=== PATIENT | female | born 1995 | race Two or more races ===

== ENCOUNTER 2020-04-20 05:11 | Day surgery (SDC) | payer OTHER ==
[2020-04-19 15:13] VITALS: BMI 23.6
[2020-04-20] MEDS ORDERED: BUPIVACAINE HCL 100 ML ONE (07:18)
[2020-04-20] MEDS ORDERED: MIDAZOLAM HCL 2 MG/2 ML SINGLE DOSE VIAL ONE ×2 (07:46)
[2020-04-20] MEDS ORDERED: PROPOFOL 20 ML ONE ×5 (07:46→11:26)
[2020-04-20] MEDS ORDERED: ROCURONIUM BROMIDE 50 MG/5 ML SYRINGE ONE ×2 (07:46→09:18)
[2020-04-20] MEDS ORDERED: fentaNYL CITRATE 250 MCG/5 ML VIAL ONE (07:46)
[2020-04-20] MEDS ORDERED: NEOSTIGMINE METHYLSULFATE 0.5 MG/ML - 10 ML MDV ONE (07:46)
[2020-04-20] MEDS ORDERED: GLYCOPYRROLATE 0.2 MG/1 ML VIAL ONE ×2 (07:46→09:17)
[2020-04-20] MEDS ORDERED: LIDOCAINE HCL 2% JELLY (5 ML/TUBE) ONE (07:46)
[2020-04-20] MEDS ORDERED: ceFAZolin SODIUM 1 GM VIAL IVPB ONE (08:20)
[2020-04-20] MEDS ORDERED: EPHEDRINE SULFATE/0.9% NACL/PF 50 MG/10 ML SYRINGE NR ONE (08:43)
[2020-04-20] MEDS ORDERED: BUPIVACAINE HCL/PF 0.5% (5MG/ML) 10 ML VIAL IJ ONE ×2 (08:44→09:50)
[2020-04-20] MEDS ORDERED: DEXAMETHASONE SOD PHOSPHATE 4 MG/1 ML VIAL ONE (09:23)
[2020-04-20] MEDS ORDERED: KETOROLAC TROMETHAMINE 30 MG/1 ML VIAL ONE (09:23)
[2020-04-20] MEDS ORDERED: LACTATED RINGERS SOLUTION 1,000 ML IV SCH (11:00)
[2020-04-20] MEDS ORDERED: oxyCODONE HCL 5 MG TABLET PO PRN ×2 (11:00)
[2020-04-20] MEDS ORDERED: ONDANSETRON 4 MG/2 ML VIAL IVPUSH PRN (11:00)
[2020-04-20] MEDS ORDERED: oxyCODONE HCL 5 MG TABLET ONE ×2 (12:47→13:13)
[2020-04-20 14:29] VITALS: TEMP 97.3
[2020-04-20 15:49] VITALS: BP 100/70; PULSE 70
== END 2020-04-20 15:30 | disposition home or self-care (01) ==
LOC: JASU-SURG 05:11
PROVIDERS: ATTEND Surgery
PROC: 0WQF4ZZ Repair Abdominal Wall, Percutaneous Endoscopic Approach (ICD-10-PCS; principal; 2020-04-20 08:00)
PROC: 0FT44ZZ Resection of Gallbladder, Percutaneous Endoscopic Approach (ICD-10-PCS; 2020-04-20 08:00)
DX: K81.1 Chronic cholecystitis (principal); K42.9 Umbilical hernia without obstruction or gangrene
CPT/HCPCS: 84703; 88304-TC; 94760

== ENCOUNTER 2020-05-21 20:04 | Emergency (ER) | payer OTHER ==
[2020-05-21 20:15] VITALS: BP 111/76; PULSE 94; TEMP 97.6; BMI 23.9
[2020-05-21 22:24] LABS: BASO % 0.4 % (0-2.0); EOS % 1.8 % (0-4.5); HEMATOCRIT 35.6 % (32.4-45.2); HEMOGLOBIN 12.3 GM/dL (10.7-15.3); LYMPH % 23.3 % (8-40); MCH 29.9 pg (25.7-33.7); MCHC 34.4 g/dl (32.0-36.0); MEAN CELL VOLUME 86.9 fl (80-96); MEAN PLT VOLUME 9.1 fl (7.5-11.1); MONO % 7.4 % (3.8-10.2); NEUT % 67.1 % (42.8-82.8); PLATELET COUNT 284 K/MM3 (134-434); RDW 12.6 % (11.6-15.6); WHITE BLOOD COUNT 9.2 K/mm3 (4.0-10.0)
[2020-05-21 22:32] LABS: CALCIUM 9.3 mg/dL (8.5-10.1)
[2020-05-21 22:33] LABS: ALBUMIN 3.7 g/dl (3.4-5.0); BLOOD UREA NITROGEN 19.5 mg/dL (7-18)
[2020-05-21 22:36] LABS: CREATININE 0.7 mg/dL (0.55-1.3)
[2020-05-21 22:37] LABS: INR 1.09 (0.83-1.09); PROTHROMBIN TIME (PATIENT) 13.1 SEC (9.7-13.0)
[2020-05-21 22:38] LABS: TOT PROT 8.1 g/dl (6.4-8.2)
[2020-05-21 22:40] LABS: ACTIVATED PTT 26.3 SECONDS (25.2-36.5)
[2020-05-21 22:41] LABS: BILIRUBIN,TOTAL 0.4 mg/dL (0.2-1)
[2020-05-21] MEDS ORDERED: APIXABAN 5 MG TABLET ONE (23:40)
[2020-05-22] MEDS ORDERED: APIXABAN 5 MG TABLET PO ONE ×2 (01:00→23:28)
== END 2020-05-22 01:12 | disposition home or self-care (01) ==
LOC: JERFT 20:04 → JER 20:04
DX: I82.412 Acute embolism and thrombosis of left femoral vein (principal); R22.42 Localized swelling, mass and lump, left lower limb
CPT/HCPCS: 36415; 80053; 85025; 85610; 85730; 93971-TC; 99284-25